=== PATIENT | female | born 1985 | race American Indian/Alaskan Native ===

== ENCOUNTER 2019-01-31 08:45 | Emergency (ER) | payer MEDICAID ==
[2019-01-31] MEDS ORDERED: ASPIRIN PO ONE (09:24)
[2019-01-31 10:16] LABS: Hematocrit 42.1 % (30.3-42.9); Hemoglobin 13.9 gm/dl (10.1-14.3); Mean Corpuscular HGB Conc 33 % (30-34); Mean Corpuscular Volume 86 fl (79-97); Platelet Count 245 K/mm3 (140-440); Red Blood Count 4.92 M/mm3 (3.65-5.03); Red Cell Distribution Width 15.3 % (13.2-15.2)
[2019-01-31 10:34] LABS: BUN/Creatinine Ratio 20; Blood Urea Nitrogen 14 mg/dL (7-17); Calcium 8.6 mg/dL (8.4-10.2); Hemolysis Index 36
[2019-01-31] MEDS ORDERED: TORADOL IM ONE (11:01)
--- NOTE | 2019-01-31 11:40 | Emergency Department Report ---
- General Chief Complaint: Upper Respiratory Infection Stated Complaint: BODY ACHE/CHEST Time Seen by Provider: 01/31/19 10:20 Source: patient Mode of arrival: Ambulatory Limitations: No Limitations - History of Present Illness Initial Comments: 33-year-old female with a past medical history hypertension presents to the hospital complaining of cough 2 weeks, chest pain, generalized body aches, and ongoing left heel pain. Patient complains of dry cough without fever. She comp lains of left chest pain to the lateral sternum which is intermittent. She feels like her chest is "locked up" when she coughs or bends forward. He complains of shortness of breath and feeling hot without nausea, vomiting, diaphoresis, or fever. She has a sick child in her home. She has ongoing left heel pain secondary to plantar fasciitis and has received outpatient workup. No new foot injury reported. - Related Data Previous Rx's Medication Instructions Recorded Last Taken Type Azithromycin [Zithromax Z-SEMAJ] 1 dose PO DAILY 5 Days tab 01/31/19 Unknown Rx Benzonatate [Tessalon Perles] 100 mg PO Q8HR PRN #20 capsule 01/31/19 Unknown Rx Ibuprofen [Motrin] 800 mg PO Q8HR PRN #30 tablet 01/31/19 Unknown Rx traMADol [Ultram 50 MG tab] 50 mg PO Q6HR PRN #20 tablet 01/31/19 Unknown Rx Allergies Allergy/AdvReac Type Severity Reaction Status Date / Time No Known Allergies Allergy Unverified 01/31/19 08:51 ED Review of Systems ROS: Stated complaint: BODY ACHE/CHEST Other details as noted in HPI Comment: All other systems reviewed and negative ED Past Medical Hx - Past Medical History Previous Medical History?: Yes Hx Hypertension: Yes - Surgical History Past Surgical History?: Yes Additional Surgical History: Cyst removal to back of head in October. - Social History Smoking Status: Current Every Day Smoker Substance Use Type: None - Medications Home Medications: Home Medications Medication Instructions Recorded Confirmed Last Taken Type Azithromycin [Zithromax Z-SEMAJ] 1 dose PO DAILY 5 Days tab 01/31/19 Unknown Rx Benzonatate [Tessalon Perles] 100 mg PO Q8HR PRN #20 capsule 01/31/19 Unknown Rx Ibuprofen [Motrin] 800 mg PO Q8HR PRN #30 tablet 01/31/19 Unknown Rx traMADol [Ultram 50 MG tab] 50 mg PO Q6HR PRN #20 tablet 01/31/19 Unknown Rx ED Physical Exam - General Limitations: No Limitations - Other Other exam information: General: No limitations, patient is alert in no acute distress Head exam: Atraumatic, normocephalic Eyes exam: Normal appearance, pupils equal reactive to light, extraocular movements intact ENT: Moist mucous membrane, normal oropharynx Neck exam: Normal inspection, full range of motion, no meningismus nontender Respiratory exam: Clear to auscultation bilateral, no wheezes, rales, crackles Cardiovascular: Normal rate and rhythm, reproducible and left-sided chest wall tenderness Abdomen: Soft, nondistended, and nontender, with normal bowel sounds, no rebound, or guarding Extremity: Full range of motion normal inspection no deformity, tenderness at the left heel area of the plantar fascia insertion. No warmth or erythema Back: Normal Inspection, full range of motion, no tenderness Neurologic: Alert, oriented x3, cranial nerves intact, no motor or sensory deficit Psychiatric: normal affect, normal mood Skin: Warm, dry, intact ED Course Vital Signs 01/31/19 01/31/19 11:20 11:53 Temperature 98.2 F Pulse Rate 78 Respiratory 18 18 Rate Blood Pressure 131/83 [Right] O2 Sat by Pulse 100 Oximetry ED Medical Decision Making - Lab Data Result diagrams: 01/31/19 09:34 01/31/19 09:34 Lab Results 01/31/19 01/31/19 01/31/19 Range/Units 09:34 09:34 09:34 WBC 13.5 H (4.5-11.0) K/mm3 RBC 4.92 (3.65-5.03) M/mm3 Hgb 13.9 (10.1-14.3) gm/dl Hct 42.1 (30.3-42.9) % MCV 86 (79-97) fl MCH 28 (28-32) pg MCHC 33 (30-34) % RDW 15.3 H (13.2-15.2) % Plt Count 245 (140-440) K/mm3 Lymph # Part Maker Sodium 139 (137-145) mmol/L Potassium 3.9 (3.6-5.0) mmol/L Chloride 99.6 (98-107) mmol/L Carbon Dioxide 26 (22-30) mmol/L Anion Gap 17 mmol/L BUN 14 (7-17) mg/dL Creatinine 0.7 (0.7-1.2) mg/dL Estimated GFR > 60 ml/min BUN/Creatinine Ratio 20 % Glucose 74 (65-100) mg/dL Calcium 8.6 (8.4-10.2) mg/dL Troponin T < 0.010 (0.00-0.029) ng/mL HCG, Qual Negative (Negative) - EKG Data -: EKG Interpreted by Me EKG shows normal: sinus rhythm, axis (qrs 41), QRS complexes (qrsd 83), ST-T waves (no stemi) Rate: normal (87) - Radiology Data Radiology results: image reviewed Chest x-ray reviewed official result pending. No acute findings. Patient did not want to wait until official report available because she had to picker/puller her children - Medical Decision Making Patient has reproducible chest wall pain likely secondary to coughing 2 weeks. Patient also has chronic Heel pain. Patient was treated symptomatically and if her pain and cough and empirically for atypical pneumonia versus viral syndrome given the long cough 2 weeks. - Differential Diagnosis URI, bronchitis, atypical pneumonia, plantar fasciitis, MSK pain, MO Critical Care Time: No Critical care attestation.: If time is entered above; I have spent that time in minutes in the direct care of this critically ill patient, excluding procedure time. ED Disposition Clinical Impression: Acute bronchitis, Chest wall muscle strain, Plantar fasciitis of left foot Disposition: DC-01 TO HOME OR SELFCARE Is pt being admited?: No Does the pt Need Aspirin: No Condition: Stable Instructions: Plantar Fasciitis (ED), Acute Bronchitis (ED), Thoracic Pain (ED) Additional Instructions: Take the medication as prescribed. Follow up with your doctor or the clinic/doctor provided. Return if symptoms worsen as indicated by your discharge instructions Prescriptions: Ibuprofen [Motrin] 800 mg PO Q8HR PRN #30 tablet PRN Reason: Pain, Moderate (4-6) Benzonatate [Tessalon Perles] 100 mg PO Q8HR PRN #20 capsule PRN Reason: Cough traMADol [Ultram 50 MG tab] 50 mg PO Q6HR PRN #20 tablet PRN Reason: Pain Azithromycin [Zithromax Z-SEMAJ] 1 dose PO DAILY 5 Days tab Referrals: INEZ PENALOZA MD [Primary Care Provider] - 3-5 Days JOSE RAFAEL PATEL MD [Staff Physician] - 3-5 Days (Orthopedic doctor) Time of Disposition: 12:06
[2019-01-31 11:53] VITALS: BP 131/83
[2019-01-31 12:37] LABS: Band Neutrophils # (Manual) 0.1 K/mm3; Basophils % (Manual) 0 % (0.0-1.8); Total Cells Counted 100
[2019-01-31 12:38] LABS: Platelet Estimate Consistent w Auto
--- NOTE | 2019-01-31 12:56 | XRay Report ---
EXAM: XR CHEST ROUTINE 2V HISTORY: cough TECHNIQUE: PA and lateral chest x-ray dated 01/31/2019 at 11:13 AM. COMPARISON: None available. FINDINGS: There is minimal prominence of the bronchopulmonary markings, presumed to represent mild bronchitis i n the appropriate clinical setting; differential diagnoses includes normal anatomical variant and min imal cardiogenic or noncardiogenic pulmonary congestion in the appropriate clinical setting. Clinica l correlation is advised. No focal consolidative lung infiltrate, pleural effusion, or pneumothorax i s seen. The heart size and mediastinum are within normal limits. The visualized bony structures are w ithin normal limits. IMPRESSION: 1. Minimal prominence of the bronchopulmonary markings, presumed to represent mild bronchitis in th e appropriate clinical setting; differential diagnoses includes normal anatomical variant and minimal cardiogenic or noncardiogenic pulmonary congestion in the appropriate clinical setting. Clinical co rrelation is advised. 2. No focal consolidative lung infiltrate, pleural effusion, or pneumothorax seen. This document is electronically signed by Davis Mayes MD., January 31 2019 12:53:49 PM ET
== END 2019-01-31 12:14 | disposition home or self-care (01) ==
LOC: ED 08:45
DX: S29.011A Strain of muscle and tendon of front wall of thorax, initial encounter (principal); J20.9 Acute bronchitis, unspecified; F17.200 Nicotine dependence, unspecified, uncomplicated; X58.XXXA Exposure to other specified factors, initial encounter; Y93.89 Activity, other specified; Y92.89 Other specified places as the place of occurrence of the external cause; Y99.8 Other external cause status; M72.2 Plantar fascial fibromatosis
CPT/HCPCS: 36415; 71046; 80048; 84484; 84703; 85007; 85025; 93005; 93010; 96372; 99284; J1885